=== PATIENT | female | born 2000 | race Two or more races ===

== ENCOUNTER → 2024-05-09 | Outpatient (CLI) | payer BC, SELFPAY ==
[2024-05-09 11:24] LABS: Collection Type, Urine Clean Catch
[2024-05-09 11:38] LABS: Basophils % (Auto) 0 % (0-2.5); Eosinophils # (Auto) 0.1 Thou/mm3 (0.0-0.5); Eosinophils % (Auto) 1 % (0-10); Hematocrit 36.8 % (36.0-46.0); Hemoglobin 12.2 g/dL (12.0-16.0); Immature Granulocytes % (Auto) 0 % (0-0); Immature Granulocytes Auto 0.04 Thou/mm3 (0.00-0.00); Lymphocytes # (Auto) 2.8 Thou/mm3 (1.0-4.8); Lymphocytes % (Auto) 30 % (10-50); Mean Corpuscular HGB Conc 33.2 g/dl (31.0-37.0); Mean Corpuscular Hemoglobin 25.3 pg (25.0-35.0); Mean Corpuscular Volume 76 fL (80-100); Monocytes # (Auto) 0.5 Thou/mm3 (0.0-0.8); Monocytes % (Auto) 5 % (0-12); Neutrophils % (Auto) 64 % (37-80); Nucleated Red Blood Cell % 0 /100 WBC (0); Platelet Count 331 Thou/mm3 (140-440); RDW Standard Deviation 40.6 fL (36.4-46.3); Red Blood Count 4.83 Miln/mm3 (4.00-5.20); White Blood Count 9.4 Thou/mm3 (3.6-11.0)
[2024-05-09 11:51] LABS: Bacteria,Urine Rare; Bilirubin,Urine Negative (Negative); Blood,Urine Negative (Negative); Clarity,Urine Turbid (Clear/Hazy); Color,Urine Yellow (Lt Yel-Yel); Culture Indicated,Urine Not Indicated; Glucose, Urine Negative (Negative); Ketones,Urine Trace (Negative); Leukocyte Esterase,Urine Positive (Negative); Nitrite,Urine Negative (Negative); Protein,Urine Trace (Neg - Trace); RBC,Urine 2 /hpf (0-3); Specific Gravity,Urine 1.026 (1.001-1.035); Squamous Epithelial Cell,Urine 2 /hpf (0-5); Urobilinogen,Urine Negative mg/dL (0.0-1.0); WBC,Urine 3 /hpf (0-5)
[2024-05-09 12:11] LABS: Glucose Estimated Average 97 mg/dL (80-131)
[2024-05-09 12:19] LABS: Alanine Aminotransferase < 7 U/L (10-49); Albumin/Globulin Ratio 1.5 (1.2-2.2); Alkaline Phosphatase 70 U/L (46-116); Anion Gap 8 (7-16); Aspartate Amino Transferase < 8 U/L (0-34); BUN/Creatinine Ratio 13 Ratio (12-20); Bilirubin,Total 0.3 mg/dL (0.3-1.2); Blood Urea Nitrogen 5 mg/dL (9-23); Carbon Dioxide 23.8 mMol/L (20.0-31.0); Cardiac Risk Estimate 2.6 RATIO (3.7-5.6); Chloride 104 mMol/L (98-107); Cholesterol 173 mg/dL (132-200); Creatinine (Component) 0.4 mg/dL (0.6-1.3); Globulin 2.6 gm/dL (2.3-3.5); Glucose 88 mg/dL (74-106); HDL Cholesterol 66 mg/dL (40-60); LDL Cholesterol,Calculated 85 mg/dL (0-130); Osmolality,Calculated 268 (275-295); Sodium 136 mMol/L (136-145); Thyroid Stimulating Hormone 0.15 uIU/mL (0.55-4.78); Total Protein 6.6 gm/dL (5.7-8.2); Triglycerides 108 mg/dL (30-150); eGFR > 60 See Note
== END | disposition home or self-care (01) ==
LOC: COPL 10:53
PROVIDERS: PCP Physician Assistant; Referring Provider Physician Assistant; Visit Provider Physician Assistant
DX: N91.2 Amenorrhea, unspecified (principal)
CPT/HCPCS: 36415; 80053; 80061; 81001; 83036; 84443; 85025

== ENCOUNTER → 2024-06-07 | Outpatient (CLI) | payer BC, SELFPAY ==
[2024-06-07 11:02] LABS: Quantiferon-TB* See Sep Rpt
== END | disposition home or self-care (01) ==
LOC: COPL 10:39
PROVIDERS: PCP Family Medicine; Referring Provider Physician Assistant Medical; Visit Provider Physician Assistant Medical
DX: Z34.81 Encounter for supervision of other normal pregnancy, first trimester (principal)
CPT/HCPCS: 86480

== ENCOUNTER 2024-06-13 20:06 | Observation (INO) | payer BC, SELFPAY ==
[2024-06-13 20:19] VITALS: TEMP 37.2
[2024-06-13 20:24] VITALS: BP 129/81; PULSE 90
[2024-06-13 20:25] VITALS: BP 129/81; PULSE 90; RESP 100; RESP 18; TEMP 37.2
== END 2024-06-13 21:09 | disposition home or self-care (01) ==
PROVIDERS: Admitting Provider Specialist; Visit Provider Specialist
DX: O46.92 Antepartum hemorrhage, unspecified, second trimester (principal); Z3A.20 20 weeks gestation of pregnancy
CPT/HCPCS: 59899

== ENCOUNTER → 2024-07-04 | Outpatient (CLI) | payer BC, SELFPAY | END | disposition home or self-care (01) | LOC: SLDO 15:24 | PROVIDERS: Referring Provider Physician Assistant Medical; Visit Provider Physician Assistant Medical | DX: O23.90 Unspecified genitourinary tract infection in pregnancy, unspecified trimester (principal) | CPT/HCPCS: 87086 ==

== ENCOUNTER → 2024-08-04 | Outpatient (CLI) | payer BC, SELFPAY ==
[2024-08-04 15:42] LABS: Glucose,1 Hour PP 50gm Dose 125 mg/dL (80-140)
== END | disposition home or self-care (01) ==
LOC: SLDO 14:06
PROVIDERS: Referring Provider Specialist; Visit Provider Specialist
DX: Z34.82 Encounter for supervision of other normal pregnancy, second trimester (principal)
CPT/HCPCS: 36415; 82950

== ENCOUNTER → 2024-08-05 | Outpatient (CLI) | payer BC, SELFPAY | END | disposition home or self-care (01) | LOC: SLDO 15:22 | PROVIDERS: Referring Provider Physician Assistant Medical; Visit Provider Physician Assistant Medical | DX: O23.90 Unspecified genitourinary tract infection in pregnancy, unspecified trimester (principal) | CPT/HCPCS: 87077; 87086; 87186 ==

== ENCOUNTER → 2024-08-24 | Outpatient (CLI) | payer BC, SELFPAY ==
[2024-08-24 14:57] LABS: Basophils % (Auto) 0 % (0-2.5); Eosinophils # (Auto) 0.1 Thou/mm3 (0.0-0.5); Eosinophils % (Auto) 1 % (0-10); Hematocrit 37.3 % (36.0-46.0); Immature Granulocytes % (Auto) 1 % (0-0); Lymphocytes % (Auto) 26 % (10-50); Mean Corpuscular HGB Conc 29.5 g/dl (31.0-37.0); Mean Corpuscular Volume 88 fL (80-100); Monocytes # (Auto) 0.7 Thou/mm3 (0.0-0.8); Monocytes % (Auto) 6 % (0-12); Neutrophils # (Auto) 7.4 Thou/mm3 (1.8-7.7); Neutrophils % (Auto) 66 % (37-80); Nucleated Red Blood Cell % 0 /100 WBC (0); Platelet Count 324 Thou/mm3 (140-440); RDW Standard Deviation 56.1 fL (36.4-46.3); Red Blood Count 4.23 Miln/mm3 (4.00-5.20); White Blood Count 11.3 Thou/mm3 (3.6-11.0)
[2024-08-24 15:42] LABS: Syphilis Nonreactive (Nonreactive)
[2024-08-24 17:15] LABS: BVAG Candida Positive (Negative); Bacterial Vaginosis Markers Positive (Negative); Candida glabrata Negative (Negative); Candida krusei PCR Negative (Negative); Trichomonas Negative (Negative)
== END | disposition home or self-care (01) ==
PROVIDERS: Referring Provider Physician Assistant Medical; Visit Provider Physician Assistant Medical
DX: Z34.83 Encounter for supervision of other normal pregnancy, third trimester (principal)
CPT/HCPCS: 36415; 81514; 85025; 86780; 87077; 87086; 87186

== ENCOUNTER → 2024-09-08 | Outpatient (CLI) | payer BC, SELFPAY | END | disposition home or self-care (01) | LOC: SLDO 14:53 | PROVIDERS: Referring Provider Physician Assistant Medical; Visit Provider Physician Assistant Medical | DX: Z34.83 Encounter for supervision of other normal pregnancy, third trimester (principal) | CPT/HCPCS: 87086 ==

== ENCOUNTER → 2024-09-22 | Outpatient (CLI) | payer BC, SELFPAY ==
[2024-09-22 16:22] LABS: Basophils % (Auto) 0 % (0-2.5); Eosinophils % (Auto) 0 % (0-10); Hematocrit 33.5 % (36.0-46.0); Hemoglobin 11.5 g/dL (12.0-16.0); Immature Granulocytes % (Auto) 1 % (0-0); Immature Granulocytes Auto 0.08 Thou/mm3 (0.00-0.00); Lymphocytes # (Auto) 2.8 Thou/mm3 (1.0-4.8); Lymphocytes % (Auto) 25 % (10-50); Mean Corpuscular HGB Conc 34.3 g/dl (31.0-37.0); Mean Corpuscular Hemoglobin 26.1 pg (25.0-35.0); Mean Corpuscular Volume 76 fL (80-100); Monocytes # (Auto) 0.6 Thou/mm3 (0.0-0.8); Monocytes % (Auto) 6 % (0-12); Neutrophils # (Auto) 7.8 Thou/mm3 (1.8-7.7); Neutrophils % (Auto) 68 % (37-80); Nucleated Red Blood Cell % 0 /100 WBC (0); Platelet Count 315 Thou/mm3 (140-440); RDW Standard Deviation 43.6 fL (36.4-46.3); White Blood Count 11.3 Thou/mm3 (3.6-11.0)
[2024-09-22 16:54] LABS: Creatinine,Random Urine 182 mg/dL (30-125); Protein Total, Random Urine 43 mg/dL (1-14)
[2024-09-22 16:56] LABS: Alanine Aminotransferase < 7 U/L (10-49); Albumin, Serum 3.8 gm/dL (3.5-5.0); Albumin/Globulin Ratio 1.5 (1.2-2.2); Alkaline Phosphatase 146 U/L (46-116); Anion Gap 11 (7-16); Aspartate Amino Transferase 14 U/L (0-34); BUN/Creatinine Ratio 10 Ratio (12-20); Bilirubin,Total 0.3 mg/dL (0.3-1.2); Blood Urea Nitrogen < 5 mg/dL (9-23); Calcium 8.8 mg/dL (8.3-10.6); Carbon Dioxide 22.4 mMol/L (20.0-31.0); Chloride 107 mMol/L (98-107); Creatinine (Component) 0.5 mg/dL (0.6-1.3); Globulin 2.5 gm/dL (2.3-3.5); Glucose 88 mg/dL (74-106); Osmolality,Calculated 275 (275-295); Potassium 3.8 mMol/L (3.4-5.1); Sodium 140 mMol/L (136-145); Total Protein 6.3 gm/dL (5.7-8.2); eGFR > 60 See Note
[2024-09-22 17:50] LABS: INR 0.9 (0.9-1.3); Partial Thromboplastin Time 28.2 Seconds (22.0-36.0); Prothrombin Time 10.2 Seconds (9.0-12.2)
== END | disposition home or self-care (01) ==
LOC: COPL 15:07
PROVIDERS: PCP Family Medicine; Referring Provider Specialist; Visit Provider Specialist
DX: R03.0 Elevated blood-pressure reading, without diagnosis of hypertension (principal)
CPT/HCPCS: 36415; 80053; 82570; 84156; 85025; 85610; 85730

== ENCOUNTER → 2024-09-23 | Outpatient (CLI) | payer BC, SELFPAY | END | disposition home or self-care (01) | LOC: SLDO 14:17 | PROVIDERS: Referring Provider Physician Assistant Medical; Visit Provider Physician Assistant Medical | DX: Z34.83 Encounter for supervision of other normal pregnancy, third trimester (principal) | CPT/HCPCS: 87077; 87086; 87186 ==

== ENCOUNTER 2024-09-26 16:29 | Outpatient (CLI) | payer BC, SELFPAY ==
[2024-09-26 16:36] VITALS: BP 119/74; PULSE 87; RESP 17; TEMP 36.8
[2024-09-26 16:39] VITALS: BMI 39.6
[2024-09-26 16:40] VITALS: BP 119/74; PULSE 87; RESP 17; TEMP 36.8
[2024-09-26] MEDS: BETAMET ACET/BETAMET NA PH (Celestone) 6 MG/ML VIAL 12 MG IM (16:56)
== END 2024-09-26 17:28 | disposition home or self-care (01) ==
LOC: S4S1 16:30 → S4SX 16:39
PROVIDERS: Referring Provider Obstetrics & Gynecology; Visit Provider Obstetrics & Gynecology
DX: Z34.83 Encounter for supervision of other normal pregnancy, third trimester (principal); Z36.9 Encounter for antenatal screening, unspecified; Z3A.35 35 weeks gestation of pregnancy
CPT/HCPCS: 59025; 96372; J0702

== ENCOUNTER → 2024-09-26 | Outpatient (CLI) | payer BC, SELFPAY ==
[2024-09-26 10:58] LABS: Creatinine, Urine Volume 1790 mL/24hr (600-1800); Protein Total, Urine Volume 1790 mL/24hr (600-1800)
[2024-09-26 11:18] LABS: Creatinine, 24 Hour Urine 1.6 gm/24hr (0.6-1.8); Creatinine,Urine 89 mg/dL (30-125); Protein Total, 24 hr Urine 412 mg/24hr (<149); Protein Total, Urine 23 mg/dL (1-14)
== END | disposition home or self-care (01) ==
LOC: SLDO 09:35
PROVIDERS: Referring Provider Specialist; Visit Provider Specialist
DX: R03.0 Elevated blood-pressure reading, without diagnosis of hypertension (principal)
CPT/HCPCS: 82570; 84156

== ENCOUNTER 2024-09-27 16:16 | Outpatient (CLI) | payer BC, SELFPAY ==
[2024-09-27] VITALS (13 sets, daily range): BP systolic 119–121; BP diastolic 67–71; PULSE 93–116; RESP 16–97; TEMP 36.8–37.1; O2SAT 97–98; BMI 39.2
[2024-09-27] MEDS: BETAMET ACET/BETAMET NA PH (Celestone) 6 MG/ML VIAL 12 MG IM (17:22)
== END 2024-09-27 17:30 | disposition home or self-care (01) ==
LOC: S4S1 16:18 → S4SX 16:19
PROVIDERS: Referring Provider Specialist; Visit Provider Specialist
DX: Z34.83 Encounter for supervision of other normal pregnancy, third trimester (principal); Z3A.35 35 weeks gestation of pregnancy
CPT/HCPCS: 96372; J0702

== ENCOUNTER → 2024-09-30 | Outpatient (CLI) | payer BC, SELFPAY ==
[2024-09-30 16:48] LABS: Basophils % (Auto) 0 % (0-2.5); Eosinophils # (Auto) 0.1 Thou/mm3 (0.0-0.5); Eosinophils % (Auto) 0 % (0-10); Hematocrit 34.7 % (36.0-46.0); Hemoglobin 11.4 g/dL (12.0-16.0); Immature Granulocytes % (Auto) 1 % (0-0); Immature Granulocytes Auto 0.17 Thou/mm3 (0.00-0.00); Lymphocytes # (Auto) 4.1 Thou/mm3 (1.0-4.8); Lymphocytes % (Auto) 33 % (10-50); Mean Corpuscular HGB Conc 32.9 g/dl (31.0-37.0); Mean Corpuscular Hemoglobin 26.3 pg (25.0-35.0); Mean Corpuscular Volume 80 fL (80-100); Monocytes # (Auto) 1.1 Thou/mm3 (0.0-0.8); Monocytes % (Auto) 9 % (0-12); Neutrophils # (Auto) 7.1 Thou/mm3 (1.8-7.7); Neutrophils % (Auto) 57 % (37-80); Nucleated Red Blood Cell % 0 /100 WBC (0); Platelet Count 315 Thou/mm3 (140-440); RDW Standard Deviation 47.5 fL (36.4-46.3); Red Blood Count 4.34 Miln/mm3 (4.00-5.20); White Blood Count 12.6 Thou/mm3 (3.6-11.0)
[2024-09-30 17:13] LABS: Alanine Aminotransferase < 7 U/L (10-49); Albumin, Serum 3.7 gm/dL (3.5-5.0); Albumin/Globulin Ratio 1.8 (1.2-2.2); Alkaline Phosphatase 148 U/L (46-116); Anion Gap 9 (7-16); Aspartate Amino Transferase 15 U/L (0-34); BUN/Creatinine Ratio 12 Ratio (12-20); Bilirubin,Total 0.2 mg/dL (0.3-1.2); Blood Urea Nitrogen 6 mg/dL (9-23); Calcium 8.6 mg/dL (8.3-10.6); Calcium (Corrected) 8.8 mg/dL (8.5-10.1); Chloride 106 mMol/L (98-107); Creatinine (Component) 0.5 mg/dL (0.6-1.3); Globulin 2.1 gm/dL (2.3-3.5); Glucose 82 mg/dL (74-106); Osmolality,Calculated 272 (275-295); Potassium 4.3 mMol/L (3.4-5.1); Sodium 138 mMol/L (136-145); Total Protein 5.8 gm/dL (5.7-8.2); Uric Acid 4.8 mg/dL (3.1-7.8); eGFR > 60 See Note
[2024-09-30 17:26] LABS: Fibrinogen 441 mg/dL (175-375); INR 0.9 (0.9-1.3); Partial Thromboplastin Time 27.1 Seconds (22.0-36.0); Prothrombin Time 9.8 Seconds (9.0-12.2)
== END | disposition home or self-care (01) ==
LOC: SLDO 14:52
PROVIDERS: Referring Provider Physician Assistant Medical; Visit Provider Physician Assistant Medical
DX: O14.00 Mild to moderate pre-eclampsia, unspecified trimester (principal); Z3A.00 Weeks of gestation of pregnancy not specified
CPT/HCPCS: 36415; 80053; 84550; 85025; 85384; 85610; 85730

== ENCOUNTER → 2024-10-04 | Outpatient (CLI) | payer BC, SELFPAY | END | disposition home or self-care (01) | PROVIDERS: Referring Provider Physician Assistant Medical; Visit Provider Physician Assistant Medical | DX: Z34.83 Encounter for supervision of other normal pregnancy, third trimester (principal) | CPT/HCPCS: 81514 ==

== ENCOUNTER 2024-10-10 01:42 | Inpatient (IN) | payer BC, SELFPAY ==
[2024-10-10] VITALS (31 sets, daily range): BP systolic 99–132; BP diastolic 53–90; PULSE 74–102; RESP 17–18; TEMP 36.8–37; BMI 39.6
--- NOTE | 2024-10-10 02:58 | XR_ITS ---
Examination: age limited TECHNIQUE: Limited transabdominal sonographic images pelvis Date and time: 10:30, 2024, 0330 hours INDICATIONS: Patient in active labor, unknown presentation. FINDINGS: presentation Vertex spine maternal left. Cardiac motion 126 bpm IMPRESSION: presentation Vertex
[2024-10-10 03:29] LABS: Collection Type, Urine Clean Catch
[2024-10-10 03:42] LABS: Basophils # (Auto) 0.0 Thou/mm3 (0.0-0.2); Basophils % (Auto) 0 % (0-2.5); Eosinophils # (Auto) 0.1 Thou/mm3 (0.0-0.5); Eosinophils % (Auto) 1 % (0-10); Hematocrit 35.1 % (36.0-46.0); Hemoglobin 11.6 g/dL (12.0-16.0); Immature Granulocytes Auto 0.08 Thou/mm3 (0.00-0.00); Lymphocytes # (Auto) 3.4 Thou/mm3 (1.0-4.8); Lymphocytes % (Auto) 31 % (10-50); Mean Corpuscular HGB Conc 33.0 g/dl (31.0-37.0); Mean Corpuscular Hemoglobin 26.2 pg (25.0-35.0); Mean Corpuscular Volume 79 fL (80-100); Monocytes # (Auto) 0.7 Thou/mm3 (0.0-0.8); Monocytes % (Auto) 6 % (0-12); Neutrophils # (Auto) 6.9 Thou/mm3 (1.8-7.7); Neutrophils % (Auto) 62 % (37-80); Nucleated Red Blood Cell # 0.00 Thou/mm3 (0.00-0.00); Nucleated Red Blood Cell % 0 /100 WBC (0); Platelet Count 304 Thou/mm3 (140-440); RDW Standard Deviation 45.9 fL (36.4-46.3); Red Blood Count 4.43 Miln/mm3 (4.00-5.20); White Blood Count 11.2 Thou/mm3 (3.6-11.0)
[2024-10-10 03:56] LABS: Bilirubin,Urine Negative (Negative); Blood,Urine 1+ (Negative); Clarity,Urine Clear (Clear/Hazy); Color,Urine Lt-Yellow (Lt Yel-Yel); Glucose, Urine Negative (Negative); Ketones,Urine Negative (Negative); Leukocyte Esterase,Urine Negative (Negative); Nitrite,Urine Negative (Negative); PH,Urine 6.5 (5.0-7.0); Protein,Urine Negative (Neg - Trace); RBC,Urine 41 /hpf (0-3); Specific Gravity,Urine 1.015 (1.001-1.035); Squamous Epithelial Cell,Urine < 1 /hpf (0-5); Urobilinogen,Urine Negative mg/dL (0.0-1.0); WBC,Urine 1 /hpf (0-5)
[2024-10-10 04:02] LABS: Fibrinogen 538 mg/dL (175-375); INR 0.9 (0.9-1.3); Partial Thromboplastin Time 25.1 Seconds (22.0-36.0); Prothrombin Time 9.8 Seconds (9.0-12.2)
[2024-10-10 04:03] LABS: Creatinine,Random Urine 97 mg/dL (30-125); Protein Total, Random Urine 26 mg/dL (1-14)
[2024-10-10 04:11] LABS: Syphilis Nonreactive (Nonreactive)
[2024-10-10 04:17] LABS: Alanine Aminotransferase 7 U/L (10-49); Albumin, Serum 3.9 gm/dL (3.5-5.0); Albumin/Globulin Ratio 1.4 (1.2-2.2); Alkaline Phosphatase 187 U/L (46-116); Anion Gap 9 (7-16); Aspartate Amino Transferase 16 U/L (0-34); BUN/Creatinine Ratio 10 Ratio (12-20); Bilirubin,Total 0.3 mg/dL (0.3-1.2); Blood Urea Nitrogen < 5 mg/dL (9-23); Calcium 8.8 mg/dL (8.3-10.6); Calcium (Corrected) 8.9 mg/dL (8.5-10.1); Carbon Dioxide 20.7 mMol/L (20.0-31.0); Chloride 109 mMol/L (98-107); Creatinine (Component) 0.5 mg/dL (0.6-1.3); Estimated Creatinine Clearance 191.8 mL/min (>60); Globulin 2.7 gm/dL (2.3-3.5); Glucose 84 mg/dL (74-106); Osmolality,Calculated 273 (275-295); Potassium 3.7 mMol/L (3.4-5.1); Sodium 139 mMol/L (136-145); Total Protein 6.6 gm/dL (5.7-8.2); Uric Acid 5.1 mg/dL (3.1-7.8); eGFR > 60 See Note
--- NOTE | 2024-10-10 05:10 | PC.NURSE ---
10/10/24 0424: CALLED [facility] REGARDING IMAGING REPORT,, [facility] DAYCARE DIRECTOR STATES THEY HAVE NOT RECEIVED THE IMAGES. 10/10/24 0503: CALLED JOHANNA GAME TECHNICIAN REGARDING SENDING IMAGES TO [facility], SHE STATES SHE IS HAVING TECHNICAL DIFFICULTIES, SOON IT GETS RESOLVED SHE WILL UPDATE RN.
--- NOTE | 2024-10-10 05:35 | PRELIM_ITS ---
Obstetric ultrasound. October 10, 2024 0330 hours Clinical history: presentation. Comparison: No prior study is available for comparison. Findings: There is a gravid uterus with a live fetus in cephalic presentation and the spine toward the maternal left. cardiac activity is present at a heart rate of 126 beats per minute. Impression: Gravid uterus with a single live fetus in cephalic presentation and the spine toward the maternal left. Report Electronically Signed By: Micheal Abdi 10/10/2024 5:35:12 AM [EST]
[2024-10-10] MEDS: RINGERS LACTATED 1000 ML 1,000 ML 100 ML IV (05:56)
--- NOTE | 2024-10-10 06:16 | PD.LDHP ---
Documentation for date of: 10/10/24 OB Labor/Induct. HPI History of Present Illness Chief complaint: Induction of Labor : 4 Para: 2 Term pregnancies: 1 pregnancies: 0 Living children: 2 History of Abortions: Spontaneous and Elective: 1 History of Vaginal deliveries: 2 History of sections: No History of : No Date of last menstrual period: 01/24/24 GAVIN: 10/30/24 Gestational age based on last menstrual period: 38 History of present illness: 23-year-old 4 para 2-0-1-2 at 37 weeks is presenting for induction of labor for gestational hypertension. Patient receives care at [facility]. On presentation she denies any specific obstetric complaints including contractions, leakage of fluid, vaginal bleeding and reports adequate movements. Her records were reviewed as scanned. Labs Maternal Blood Type: O Pos Labs: Negative: RPR, Hepatitis B, Rubella Titre, HIV, Chlamydia, Gonorrhea and Group Beta Strep and Unknown: Herpes Type 1, Herpes Type 2 and Covid-19 Review of Systems Review of Systems Systems Reviewed: All systems reviewed, normal except as documented Past Medical History Surgical History SURGICAL: Negative Section Meds Home Medications and Allergies Home Medications ?Medication ?Instructions ?Recorded ?Confirmed ?Type prenat.vits,magaly,hjd-qvug-oukee 1 tab PO QDAY 12/01/17 10/10/24 History ( Vitamin tablet) aspirin 81 mg tablet,delayed 81 mg PO QDAY 09/26/24 09/27/24 History release (Adult Aspirin Regimen) Allergies Allergy/AdvReac Type Severity Reaction Status Date / Time No Known Allergies Allergy Verified 10/10/24 05:10 OB Exam Physical Exam Vital signs: Temp Pulse Resp BP O2 Del Method 98.4 F 82 17 104/58 L Room Air 10/10/24 01:40 10/10/24 06:06 10/10/24 01:40 10/10/24 06:06 10/10/24 01:40 Constitutional Constitutional: no acute distress Routine HEENT Exam Head: Present normocephalic and atraumatic Eye: Present EOMI and PERRL ENT: Present mucous membranes moist Routine Neck Exam Neck: Present supple and trachea midline Routine Cardiovascular Exam Cardiovascular: Present RRR Routine Abdominal Exam Abdominal: Present soft and normoactive bowel sounds Detailed Labor and Delivery Exam Dilation (cm): 0 Effacement (%): 0 Cervix position: mid station: -3 Consistency: firm Presentation: Vertex Membranes: intact Baseline heart rate: 145 monitor accelerations: 15x15 monitor decelerations: None Routine Extremities Exam Extremities: Present full ROM Routine Skin Exam Skin: Present intact, dry and warm Routine Neurological Exam Neurological: Present alert, oriented X3 and CN II-XII intact Routine Psychiatric Exam Psychiatric: Present normal affect and normal thought process OB Results Labs 10/10/24 02:00 10/10/24 02:00 Labs: Short CBC 10/10/24 Range/Units 02:00 WBC 11.2 H (3.6-11.0) Thou/mm3 Hgb 11.6 L (12.0-16.0) g/dL Hct 35.1 L (36.0-46.0) % Plt Count 304 (140-440) Thou/mm3 BMP 10/10/24 02:00 Sodium 139 Potassium 3.7 Chloride 109 H Carbon Dioxide 20.7 BUN < 5 L Creatinine 0.5 L Glucose 84 Calcium 8.8 Liver Function 10/10/24 Range/Units 02:00 Total Bilirubin 0.3 (0.3-1.2) mg/dL AST 16 (0-34) U/L ALT 7 L (10-49) U/L Alkaline Phosphatase 187 H (46-116) U/L Albumin 3.9 (3.5-5.0) gm/dL Urine 10/10/24 Range/Units 01:50 Urine Color Lt-Yellow (Lt Yel-Yel) Urine Clarity Clear (Clear/Hazy) Urine pH 6.5 (5.0-7.0) Ur Specific [place] 1.015 (1.001-1.035) Urine Protein Negative (Neg - Trace) Urine Glucose (UA) Negative (Negative) OB Assessment & Plan Assessment and Plan (1) Rubella nonimmune status, delivered, current hospitalization: Status: Acute (2) Gestational hypertension: Status: Acute Assessment and plan: Preeclampsia panel ordered and admission Close monitoring of blood pressures (3) Encounter for induction of labor: Status: Acute Assessment and plan: Admit to inpatient status for induction of labor Routine admission labs Misoprostol for cervical ripening, proceed to oxytocin when Nava score is favorable Pain management as per protocol Continuous maternal monitor
[2024-10-10 06:49] LABS: Amphetamine/Metham Scrn,Ur OB Negative (Negative); Benzoylecgonine Screen, Ur OB Negative (Negative); Opiate Screen,Urine OB Negative (Negative); THC Screen,Urine OB Negative (Negative)
--- NOTE | 2024-10-10 07:36 | PD.LDPN ---
Documentation for date of: 10/10/24 OB Labor Progress Note Pain Control Comments: No pain Pelvic Exam Dilation (cm): 0 Effacement (%): 0 station: -3 Amniotic membrane status: Intact Comments: Cephalic per RN Contractions Monitor mode: External Contraction frequency: 4-7 Contraction pattern: Coupling Contraction intensity: Mild Status status: Category l Assessment and Plan Comments: IUP 37 wks Gestational HTN Induction of Labor Cytotec started at 0200 Discussed with patient the nature of her condition and the recommended treatment plan. Pt agrees.
[2024-10-11] VITALS (53 sets, daily range): BP systolic 105–134; BP diastolic 61–89; PULSE 60–109; RESP 16–18; TEMP 36.7–37.1; O2SAT 88–100
[2024-10-11] MEDS: fentaNYL CIT INJ 50 mCg/ML AMP 2ML 100 MCG IVP ×2 (03:52→04:59)
[2024-10-11] MEDS: OXYTOCIN in NS 20 units 20 UNIT/1,000 ML BAG 125 UNIT IV (06:27)
[2024-10-11] MEDS: LIDOCAINE HCL 1% 20 ML VIAL INFL (06:32)
--- NOTE | 2024-10-11 06:54 | PD.LDDS ---
DS: Providers Provider Date of admission: 10/10/24 01:42 Primary care physician: Physician No Primary/Family Admitting Provider: Vinod Kilgore MD Attending Provider on Admission: Evan Alba MD Attending Provider on DC: Evan Alba MD Discharging Provider: Evan Alba MD DS: Diagnosis Discharge Diagnosis (1) Preeclampsia: Status: Acute (2) Encounter for induction of labor: Status: Acute Problem List Completed Was Problem List Reviewed/Reconciled?: Yes Summary/Hosp Course Brief History: 23-year-old 4 para 2-0-1-2 at 37 weeks is presenting for induction of labor for gestational hypertension. Patient receives care at [facility]. On presentation she denies any specific obstetric complaints including contractions, leakage of fluid, vaginal bleeding and reports adequate movements. Her records were reviewed as scanned. Peripartum Data Delivery Method: Normal Vaginal Delivery Episiotomy Description: None Laceration Description: see Delivery Summary complications: none Time Spent with Patient Time attestation: Total time spent providing and/or coordinating discharge services: Exam Vital Signs Temp Pulse Resp BP Pulse Ox O2 Del Method 98.4 F 97 18 123/65 100 Room Air 10/11/24 06:44 10/11/24 06:44 10/11/24 06:44 10/11/24 06:44 10/11/24 06:50 10/10/24 01:40 Discharge Plan Plan Patient Disposition: HOME (Self Care) Patient condition on transfer: Stable Prescriptions/Referrals Prescriptions/Med Rec: New ibuprofen 600 mg tablet 600 mg PO Q6H PRN (Reason: pain) Qty: 30 0RF Discontinued aspirin [Adult Aspirin Regimen] 81 mg tablet,delayed release (DR/EC) 81 mg PO QDAY No Action Vitamin Tablet 1 tab PO QDAY Referrals: No Primary/Family,Physician [Primary Care Provider] - Patient/Caregiver Discharge Instructions Discharge Activity: activity as tolerated Other Discharge Activity Instructions:: Follow up office 6 weeks Education Materials: After a Vaginal , Depression, : Caring for Yourself Print Language: American Activity Restrictions/Additional Instructions: FOLLOW UP WITH YOUR OBGYN IN 6 WEEKS Stand Alone Forms: Caryn Award Info., Patient Portal Info Letter Vaccines Vaccines Given During Stay: MMR Discharge Order Discharge Orders: Discharge (Routine); Ordered 10/12/24 Ordered By: Evan Alba Planned Discharge Date 10/12/24 (1) Preeclampsia Qualifiers: Trimester: third trimester Qualified Code(s): O14.93 - Unspecified pre-eclampsia, third trimester
--- NOTE | 2024-10-11 06:55 | OBDSUM_ITS ---
Data ([facility]) Data Hx Section: No : 4 Term: 1 : 0 Livin Abortions: Spontaneous & Theraputic: 1 Delivery Data ([facility]) Labor Data Initiation of labor: Induction Induction/Augmentation Agent: Cytotec-PO and Cervidil ROM date: 10/11/24 ROM time: 06:25 Amniotic membrane rupture type: Artificial Amniotic fluid description: Clear Delivery Data EDC: 10/31/24 EDC calculated by:: LMP/early US confirmation Onset of labor date: 10/11/24 Onset of labor time: 04:30 Complete dilation date: 10/11/24 Complete dilation time: 06:25 delivery date: 10/11/24 delivery time: 06:27 Gestational age (weeks): 37 Gestational age (days): 1 Placenta delivery date: 10/11/24 Placenta delivery time: 06:32 Stage 1 total time: Labor - Stage 1 Duration 1 hours and 55 minutes Delivered by: Evan Alba Delivery nurse: Pepe Adams nurse: Livier Kaur Bank Manager at delivery: No Delivery Method Delivery method: Normal Vaginal Delivery Presentation: Vertex position: OA Anesthesia Type Anesthesia Type: Local Placenta Placenta delivery description: Spontaneous Cord blood sent to lab: No cord blood collection: Cord Blood Type Episiotomy Episiotomy description: None Lacerations #1: Periurethral: 1st degree Perineal repair Sutures used for repair: 3.0 Chromic Umbilical Cord cord description: 3 Vessels Complications Complications: None [place] Data ([facility]) Data order: 1 's gender: Male weight (gms): 6 lb 8.058 oz Weight (pounds): 6 lbs and 8.1 ozs [place] length: 18.9 in 1 minute: 9 5 minutes: 9
[2024-10-11] MEDS: IBUPROFEN TAB 400 MG TABLET 800 MG PO ×2 (07:00→15:32)
[2024-10-11] MEDS: BENZO/LANO/ALOE (Dermoplast) 60 GM CAN 1 SPRAY TOP (09:01)
[2024-10-11 12:26] LABS: Basophils # (Auto) 0.0 Thou/mm3 (0.0-0.2); Basophils % (Auto) 0 % (0-2.5); Eosinophils # (Auto) 0.0 Thou/mm3 (0.0-0.5); Eosinophils % (Auto) 0 % (0-10); Hematocrit 31.4 % (36.0-46.0); Hemoglobin 10.7 g/dL (12.0-16.0); Immature Granulocytes Auto 0.08 Thou/mm3 (0.00-0.00); Lymphocytes # (Auto) 2.1 Thou/mm3 (1.0-4.8); Lymphocytes % (Auto) 15 % (10-50); Mean Corpuscular HGB Conc 34.1 g/dl (31.0-37.0); Mean Corpuscular Hemoglobin 26.2 pg (25.0-35.0); Mean Corpuscular Volume 77 fL (80-100); Monocytes # (Auto) 0.7 Thou/mm3 (0.0-0.8); Monocytes % (Auto) 5 % (0-12); Neutrophils # (Auto) 11.1 Thou/mm3 (1.8-7.7); Neutrophils % (Auto) 80 % (37-80); Nucleated Red Blood Cell # 0.00 Thou/mm3 (0.00-0.00); Nucleated Red Blood Cell % 0 /100 WBC (0); Platelet Count 255 Thou/mm3 (140-440); RDW Standard Deviation 43.6 fL (36.4-46.3); Red Blood Count 4.09 Miln/mm3 (4.00-5.20); White Blood Count 14.0 Thou/mm3 (3.6-11.0)
[2024-10-12 03:58] VITALS: BP 121/80; PULSE 76; RESP 16; TEMP 36.8; O2SAT 98
[2024-10-12] MEDS: IBUPROFEN TAB 400 MG TABLET 800 MG PO (04:08)
--- NOTE | 2024-10-12 06:16 | ESPR_ITS ---
RE: SRIKANTHTOMYKaylaIGGY : 2000 DATE OF SERVICE: 10/12/2024 day #1. The patient denies any problem or complaint. She is voiding, ambulating, tolerating a regular diet and passing flatus. She denies any excessive vaginal bleeding. She denies any dizziness or lightheadedness. She denies any chest pain, palpitations, shortness of breath or lower extremity pain. OBJECTIVE: Vital Signs: Blood pressure 121/80, heart rate 76, respirations 16, temperature is 98.2, pulse ox is 98% on room air. Lungs: Clear to auscultation bilaterally. Heart: Regular rate and rhythm. Abdomen: Fundus is firm, nontender. Hemoglobin pre-delivery is 11.6, post-delivery is 10.7. ASSESSMENT: day #1, status post spontaneous vaginal delivery. Preeclampsia without severe features with stable blood pressures. PLAN: Discharge home when baby is cleared. Discharge instructions given. Follow up in the office in 6 weeks. DT: 06:06:56 TT: 06:15:00 Ref: [id number] - TID: [id number]
[2024-10-12 07:45] VITALS: BP 128/78; PULSE 78; RESP 16; TEMP 36.6; O2SAT 98
--- NOTE | 2024-10-12 13:17 | PC.SS ---
SS conducted bedside contact with the patient to address nursing referral indicating patient had history of anxiety. ?SS introduced self and role. SS discussed with patient basis of referral.? Patient confirmed she had anxiety about 5 years ago.? At that time, she was prescribed medication.? She is no longer on medication and is not experiencing any anxiety. Patient, currently, has no impairments. Patient has no current thoughts of harming herself or others.? No other history of documented mental health. FOB, Randall Breg, is involved and resides in the home. This is patient?s 3rd child. Children?s ages are: 2 and 6 years old and NB. ?, baby boy, Joe, was born via vaginal . care was completed with Dr. Alba.? Patient was consistent with . Patient plans on breast feeding. Patient is not aligned with WIC, garcia assistance or Food stamps. Patient denies history of domestic violence. Patient has all resources to include: car seat, infant clothing and supplies.? director of outpatient services provided resources to include:? [employer], Warm Line and community numbers. SS discussed in further detail emotional support and answered all questions appropriately. Patient verbalized she has support from her electric motor repairman and her family. ?No further intervention required at this time, psychiatric social worker will be available to address any further concerns. SS updated bedside nurse.
== END 2024-10-12 11:30 | disposition home or self-care (01) | DRG 807 ==
LOC: S4SX 10-11 07:48 → S4NX 10-11 08:50
PROVIDERS: Admitting Provider Obstetrics & Gynecology; Visit Provider Specialist
DX: O14.04 Mild to moderate pre-eclampsia, complicating childbirth (principal); Z37.0 Single live birth; O13.4 Gestational [pregnancy-induced] hypertension without significant proteinuria, complicating childbirth; Z3A.37 37 weeks gestation of pregnancy; O71.82 Other specified trauma to perineum and vulva; Z23 Encounter for immunization
CPT/HCPCS: 36415; 59409; 76815; 80053; 80307; 81001; 82570; 84156; 84550; 85025; 85384; 85610; 85730; 86780; 86850; 86900; 86901; 90707; J2590; J3010; J3490; J7120; A9270

== ENCOUNTER → 2024-11-22 | Outpatient (CLI) | payer BC, SELFPAY ==
[2024-11-22 16:37] LABS: Basophils # (Auto) 0.0 Thou/mm3 (0.0-0.2); Basophils % (Auto) 0 % (0-2.5); Eosinophils # (Auto) 0.1 Thou/mm3 (0.0-0.5); Eosinophils % (Auto) 1 % (0-10); Hematocrit 39.3 % (36.0-46.0); Hemoglobin 12.6 g/dL (12.0-16.0); Immature Granulocytes Auto 0.06 Thou/mm3 (0.00-0.00); Lymphocytes # (Auto) 3.9 Thou/mm3 (1.0-4.8); Lymphocytes % (Auto) 41 % (10-50); Mean Corpuscular HGB Conc 32.1 g/dl (31.0-37.0); Mean Corpuscular Hemoglobin 25.5 pg (25.0-35.0); Mean Corpuscular Volume 79 fL (80-100); Monocytes # (Auto) 0.6 Thou/mm3 (0.0-0.8); Monocytes % (Auto) 6 % (0-12); Neutrophils # (Auto) 4.9 Thou/mm3 (1.8-7.7); Neutrophils % (Auto) 51 % (37-80); Nucleated Red Blood Cell # 0.00 Thou/mm3 (0.00-0.00); Nucleated Red Blood Cell % 0 /100 WBC (0); Platelet Count 335 Thou/mm3 (140-440); RDW Standard Deviation 44.0 fL (36.4-46.3); Red Blood Count 4.95 Miln/mm3 (4.00-5.20); White Blood Count 9.5 Thou/mm3 (3.6-11.0)
[2024-11-23 10:39] LABS: BVAG Candida Negative (Negative); Bacterial Vaginosis Markers Negative (Negative); Candida glabrata Negative (Negative); Candida krusei PCR Negative (Negative); Trichomonas Negative (Negative)
== END | disposition home or self-care (01) ==
LOC: SLDO 14:50
PROVIDERS: Referring Provider Physician Assistant Medical; Visit Provider Physician Assistant Medical
DX: N76.0 Acute vaginitis (principal); A59.01 Trichomonal vulvovaginitis; D72.829 Elevated white blood cell count, unspecified
CPT/HCPCS: 36415; 81514; 85025